=== PATIENT | male | born 1935 | race Caucasian/White ===

== ENCOUNTER 2016-12-04 00:35 | Inpatient (IN) | payer MEDICARE, OTHER ==
[~2016-12-04] VITALS: Ht 172.7 cm; Wt 67.4 kg
--- NOTE | 2016-12-04 01:00 | NUR ---
WOUND 4CM X 3CM PARTIAL THICKNESS WOUND NOTED TO RIGHT DORSAL FOOT , MODERATE DRAINAGE
--- NOTE | 2016-12-04 01:28 | DIREP ---
PROCEDURE:CHEST 1 VIEW COMPARISON:None. INDICATIONS:chest pain FINDINGS: LUNGS/PLEURA:There is pulmonary hyperinflation consistent with underlying COPD. No focal consolidation. No effusions. VASCULATURE:Normal. Unremarkable pulmonary vasculature. CARDIAC:Mild cardiomegaly. MEDIASTINUM:Atherosclerotic aorta with no visible aneurysm. BONES:Mild scoliosis with mild degenerative disc disease and spondylosis. OTHER:Negative. CONCLUSION:No acute cardiopulmonary disease. Dictated by: Ian Belcher M.D. on 12/04/2016 at 01:27 AM
[2016-12-04] MEDS ORDERED: NS 1000ML 1,000 ML IV ONE (01:30)
[2016-12-04] MEDS ORDERED: NS 1000ML 1,000 ML ONE (01:34)
[2016-12-04 01:41] LABS: BASOPHIL # 0.1 10^3/uL (0.0-0.1); BASOPHIL % 0.7 % (0.0-0.2); EOSINOPHIL # 0.8 10^3/uL (0.0-0.2); EOSINOPHIL % 7.4 % (0.0-5.0); HEMOGLOBIN 11.8 g/dL (13.9-16.3); LYMPHOCYTES # 0.8 10^3/uL (1.0-4.8); LYMPHOCYTES % 7.6 % (24.0-44.0); MEAN CELL HGB 28.1 pg (26-34); MEAN CELL HGB CONCENTRATION 32.6 g/dL (33-37); MEAN CORP VOLUME 86.2 fL (78-100); MONOCYTES # 0.6 10^3/uL (0.3-0.8); MONOCYTES % 6.3 % (5.0-12.0); NEUTROPHIL # 7.9 10^3/uL (1.8-7.7); NEUTROPHILS % 77.7 % (41.0-85.0); PLATELET COUNT 189 10^3/uL (150-400); RED CELL DISTRIBUTION WIDTH 14.6 % (11.5-14.5); WHITE BLOOD CELL 10.2 10^3/uL (4.5-11.0)
--- NOTE | 2016-12-04 02:30 | NUR ---
CT PATIENT TO CT VIA WHEELCHAIR
[2016-12-04 02:31] LABS: BAND NEUTROPHILS 0 % (2-6); EOSINOPHIL 8 % (1-4); LYMPHOCYTE 12 % (25-36); MONOCYTE 4 % (3-9); SEGMENTED NEUTROPHILS 76 % (31-76)
[2016-12-04 02:33] LABS: CALCIUM 8.6 mg/dL (8.4-10.5); CARBON DIOXIDE 24.9 mmol/L (20.0-32)
--- NOTE | 2016-12-04 02:41 | DIREP ---
PROCEDURE:XRAY FOOT MIN 3 VWS-LT COMPARISON:None. INDICATIONS:diabetic foot, open sores FINDINGS: BONES:Normal. JOINTS:Normal. SOFT TISSUES:Soft tissue swelling. Vascular calcification. OTHER:No additional findings. CONCLUSION:No fracture, subluxation, or plain film evidence of osteomyelitis. Dictated by: Ian Belcher M.D. on 12/04/2016 at 02:40 AM
--- NOTE | 2016-12-04 02:46 | DIREP ---
PROCEDURE:CT HEAD OR BRAIN W/O CONTRAST COMPARISON:None at. INDICATIONS:confusion TECHNIQUE:CT images were created without intravenous contrast. FINDINGS: VENTRICLES:There is mild prominence of the ventricles and cortical sulci consistent with age related involutional changes. CEREBRUM:Small foci of diminished attenuation in the supratentorial white matter consistent with mild leukoaraiosis. CEREBELLUM:Negative. BRAINSTEM:Negative. BASAL CISTERNS:Negative. HEMORRHAGE:No MASS LESION:No ACUTE INFARCT:No SKULL:Normal. SINUSES:Normal. OTHER:Vascular calcification. CONCLUSION:Mild chronic changes. Otherwise, negative head CT. Dictated by: Ian Belcher M.D. on 12/04/2016 at 02:44 AM
--- NOTE | 2016-12-04 02:56 | ER.PDOC ---
General Chief Complaint: Altered Mental Status Stated Complaint: CONFUSION TRAVEL OUT OF US: No Time seen by MD: 12:50 Source: patient, police History of Present Illness Initial Comments Confused patient brought in by police. He does know the date and after some thought, knows the place. He appears homeless Associated Symptoms: rash, weakness Allergies: Coded Allergies: No Known Allergies (Unverified , 12/04/16) Past Medical History Medical History: diabetes, hypertension Surgical History: hip Social History Smoking: non-smoker Alcohol Use: rarely Drug Use: none Physical Exam General Appearance: Mild Distress EENT: eyes nml inspection Neck: Non-Tender Respiratory: chest non-tender CVS: reg rate & rhythm Gastrointestinal: Normal Bowel Sounds Extremities: Normal Range of Motion Comments 4 cm x 3cm partial thickness lesion of r dorsal foot. Moderate drainage Results/Orders Results/Orders Laboratory Tests Test 12/04/16 01:25 12/04/16 03:47 White Blood Count 10.2 10^3/uL (4.5-11.0) Red Blood Count 4.20 10^6/uL (4.50-5.90) Hemoglobin 11.8 g/dL (13.9-16.3) Hematocrit 36.2 % (37.0-53.0) Mean Corpuscular Volume 86.2 fL (78-100) Mean Corpuscular Hemoglobin 28.1 pg (26-34) Mean Corpuscular Hemoglobin Concent 32.6 g/dL (33-37) Red Cell Distribution Width 14.6 % (11.5-14.5) Platelet Count 189 10^3/uL (150-400) Mean Platelet Volume 11.0 fL (7.8-11.0) Neutrophils (%) (Auto) 77.7 % (41.0-85.0) Lymphocytes (%) (Auto) 7.6 % (24.0-44.0) Monocytes (%) (Auto) 6.3 % (5.0-12.0) Neutrophils # (Auto) 7.9 10^3/uL (1.8-7.7) Lymphocytes # (Auto) 0.8 10^3/uL (1.0-4.8) Monocytes # (Auto) 0.6 10^3/uL (0.3-0.8) Absolute Immature Granulocyte (auto 0.03 10^3 u/L (0-2) Differential Total Cells Counted 100 #CELLS Eosinophils % 7.4 % (0.0-5.0) Basophils % 0.7 % (0.0-0.2) Segmented Neutrophils 76 % (31-76) Band Neutrophils 0 % (2-6) Lymphocytes 12 % (25-36) Monocytes 4 % (3-9) Absolute Eosinophils (Manual) 8 % (1-4) Basophils # 0.1 10^3/uL (0.0-0.1) Atypical Lymphocytes 0 % Platelet Estimate Adequate Platelet Morphology Normal Blood Morphology Comment Normal morphology Eosinophil Count 0.8 10^3/uL (0.0-0.2) Prothrombin Time 11.2 SEC (9.8-11.9) Prothromb Time International Ratio 1.1 Activated Partial Thromboplast Time 23.9 SEC (24.67-30.72) Sodium Level 139 mmol/L (132-145) Potassium Level 4.9 mmol/L (3.6-5.2) Chloride Level 104.0 mmol/L (96-109) Carbon Dioxide Level 24.9 mmol/L (20.0-32) Anion Gap 15.0 Blood Urea Nitrogen 36 mg/dL (7-18) Creatinine 1.79 mg/dL (0.59-1.40) Estimated GFR () 44.4 (>/=60) BUN/Creatinine Ratio 20.0 Glucose Level 318 mg/dL (70-110) Hemoglobin A1c 12.8 % (4.2-6.2) Calcium Level 8.6 mg/dL (8.4-10.5) Total Bilirubin 0.3 mg/dL (0.2-1.0) Aspartate Amino Transf (AST/SGOT) 24 U/L (0-35) Alanine Aminotransferase (ALT/SGPT) 18 U/L (12-78) Alkaline Phosphatase 144 U/L (50-136) Total Creatine Kinase 164 U/L (39-308) Troponin I 0.03 ng/mL (0.00-0.05) C-Reactive Protein 1.72 mg/dL (0.00-5.00) Pro-B-Type Natriuretic Peptide 2931 pg/mL (0-450) Total Protein 6.9 g/dL (6.4-8.2) Albumin 2.8 g/dL (3.4-5.0) Globulin 4.1 Thyroid Stimulating Hormone (TSH) 2.229 mIU/mL (0.358-3.740) Serum Alcohol < 3 mg/dL (3-50) Percent Immature Gran (Cell Imm) 0.30 % (0.00-0.50) Urine Collection Type Cath Urine Color Yellow (YELLOW) Urine Appearance Hazy (CLEAR) Urine Bilirubin Negative MG/DL (NEGATIVE) Urine Ketones 5 mg/dl (NEGATIVE) Urine Specific [place] 1.020 (1.005-1.035) Urine pH 5 (5.0-6.0) Urine Protein 100 mg/dl (NEGATIVE) Urine Urobilinogen Normal (NEGATIVE) Urine Nitrate Negative (NEGATAIVE) Urine Leukocyte Esterase Negative (NEGATIVE) Urine Blood Negative (NEGATIVE) Urine RBC None seen RBC/HPF (NONE Urine WBC 5-10 WBC/HPF (0-2) Urine Squamous Epithelial Cells Few #/HPF (FEW) Urine Bacteria Few (NONE SEEN) Urine Other 5-10 transitional Urine Glucose 500 (NEGATIVE) Opiates Screen Negative (NEGATIVE) Barbiturate Screen Negative (NEGATIVE) Urine Tricyclic Antidepressants Negative (NEGATIVE) Phencyclidine (PCP) Screen Negative (NEGATIVE) Amphetamines Screen Negative (NEGATIVE) Benzodiazepines Screen Negative (NEGATIVE) Cocaine Screen Negative (NEGATIVE) Ur Tetrahydrocannabinol (THC) Scrn Negative (NEGATIVE) Ketones Small (NEGATIVE) Administered Medications Medications (Trade) Dose Ordered Sig/Kiersten Route PRN Reason Start Time Stop Time Status Last Admin Dose Admin Sodium Chloride 1,000 ml @ 999 mls/hr Q1H1M ONCE IV 12/04/16 01:30 12/04/16 02:31 DC 12/04/16 01:39 Piperacillin Sod/ Tazobactam Sod 3.375 gm/Sodium Chloride 100 ml @ 100 mls/hr Q6H IV 12/04/16 02:00 12/07/16 01:59 12/04/16 03:39 EKG/XRAY/CT/US EKG Comments: Intraventricular block, 75 bpm Departure Time of Disposition: 04:21 Disposition: 01 HOME, SELF-CARE Impression: Primary Impression: Diabetic foot Condition: Improved Referrals: PCP,UNKNOWN (PCP) PRIMARY CARE PROVIDER Comments Admit for diabetic cellulitis of r foot BALDEMAR ESPINOZA MD Dec 04, 2016 02:56
--- NOTE | 2016-12-04 03:01 | NUR ---
BLOOD CULTURES BLOOD CULTURES DRAWN X 2
[2016-12-04] MEDS ORDERED: NS 100ML 100 ML IV ONE ×2 (03:25→08:09)
[2016-12-04] MEDS ORDERED: ZOSYN 3.375 GRAM VIAL IV ONE ×2 (03:25→08:09)
[2016-12-04] MEDS: ZOSYN 3.375 GRAM VIAL 3.375 GM in NS 100ML 100 ML IV SCH ×2 (03:39→08:12)
[2016-12-04 03:45] LABS: BILIRUBIN,URINE NEGATIVE (NEGATIVE); UROBILINOGEN,URINE NORMAL (NEGATIVE)
[2016-12-04 04:01] LABS: UR BENZODIAZEPINE QUAL NEGATIVE (NEGATIVE); UR COCAINE QUAL NEGATIVE (NEGATIVE)
[2016-12-04 04:07] LABS: UA COLOR YELLOW (YELLOW)
[2016-12-04 04:08] LABS: APPEARANCE,URINE HAZY (CLEAR)
--- NOTE | 2016-12-04 04:20 | NUR ---
DR JUSTINA IBRAHIM WITH DR HORN , APTIENT TO BE ADMITTED TO MED SURG
[2016-12-04 04:50] LABS: CALCIUM 8.3 mg/dL (8.4-10.5); CARBON DIOXIDE 25.6 mmol/L (20.0-32)
[2016-12-04] MEDS ORDERED: ALBU18HF IH (05:01)
[2016-12-04] MEDS ORDERED: LISI-414 PO (05:01)
[2016-12-04] MEDS ORDERED: ATOR80TA PO (05:01)
[2016-12-04] MEDS ORDERED: METF10002 PO (05:01)
[2016-12-04] MEDS ORDERED: GLIP5TAB10 PO (05:01)
[2016-12-04] MEDS ORDERED: [UNRECOGNIZED DRUG - CODE] PO (05:01)
[2016-12-04] MEDS ORDERED: [UNRECOGNIZED DRUG - CODE] PO (05:01)
[2016-12-04 06:02] VITALS: BP 136/63
--- NOTE | 2016-12-04 06:30 | NUR ---
REPORT RECEIVED REPORT ON PT. THIS NURSE ASSUMED CARE.
--- NOTE | 2016-12-04 06:42 | NUR ---
patient transfer to 328 per wheel chair ,
[2016-12-04] MEDS ORDERED: NOVOLOG SQ STA (12:04)
[2016-12-04 12:37] VITALS: BP 139/72
[2016-12-04] MEDS ORDERED: ZOSYN IV SCH (14:00)
[2016-12-04] MEDS ORDERED: NS IV SCH (14:00)
[2016-12-04] MEDS ORDERED: VENTOLIN IH PRN (14:30)
[2016-12-04] MEDS: VANCOMYCIN HCL 1 GM in NS 250ML 250 ML IV SCH (15:30)
--- NOTE | 2016-12-04 16:15 | NUR ---
WOUND CARE WOUND CARE NURSE IN TO SEE PT AT THIS TIME. STATED TO SCRUB LLE AND THEN APPLY LOTION TO BLE. AREAS TO BUTTOCK AND MIDDLE UPPER BACK TO PLACE OPITFOAM ON AREAS.
[2016-12-04 18:00] VITALS: BP 118/64
--- NOTE | 2016-12-04 18:36 | NUR ---
REPORT REPORT RECEIVED FROM MEENA MTZ ASSUMED CARE OF PT
[2016-12-04 19:43] VITALS: BP 125/65
[2016-12-04] MEDS: LIPITOR PO SCH (21:16)
[2016-12-04] MEDS: ZOSYN 4.5 GRAM VIAL 4.5 GM in NS 100ML 100 ML IV SCH (21:17)
[2016-12-04] MEDS: GLUCOTROL PO SCH (21:17)
[2016-12-04] MEDS ORDERED: NS 500ML 500 ML IV ONE (21:19)
[2016-12-05] VITALS: BP 109/44
--- NOTE | 2016-12-05 00:20 | HPH ---
ADMIT DATE: 12/04/2016 The patient is being admitted as an inpatient. PRIMARY CARE PHYSICIAN: None. ADMITTING DIAGNOSES: 1. Left foot cellulitis with ulcerated wound. 2. 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 3. Right eye blindness. 4. Hypertension with chronic kidney disease stage 3. CHIEF COMPLAINT: Left foot has a wound on it. HISTORY OF PRESENT ILLNESS: The patient is an 81-year-old gentleman who is on a trip in his van and noticed that there was an open wound to the top of his left foot for at least a week now that has not healed completely. He was actually stopped by the police and brought in to the ER where he was found to have this open wound to his left foot and elevated blood sugars and he was subsequently admitted to my service. He denies any fevers, no chills, no lethargy, no nausea, no vomiting, no chest pain, no abdominal pain currently. No hematemesis, no hemoptysis, no diarrhea no melena, no hematochezia, no syncope. He does walk around with a cane and he has been doing that. PAST MEDICAL HISTORY: Significant for type 2 diabetes mellitus, hypertension, right eye blindness. PAST SURGICAL HISTORY: Right hip replacement. 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 ALLERGIES: NO KNOWN DRUG ALLERGIES. SOCIAL HISTORY: He does not smoke. He has an occasional alcohol, no IV drugs reported. FAMILY HISTORY: Asked and noncontributory for this admission. MEDICATIONS: He is on include metformin, vitamin E, lisinopril, glipizide, Lipitor, vitamin C and albuterol. PHYSICAL EXAMINATION: VITAL SIGNS: On admission, temperature is 97.7, pulse rate 68, respirations 16, blood pressure 130/62, O2 sats 98%. My physical exam is as follows: GENERAL: He is in no acute distress to me, awake and alert. He is oriented to person and place. HEENT: Oropharynx is clear. No maxillary sinus tenderness. NECK: Supple, no JVD, no bruits. HEART: S1, S2 audible. He had S3 component noted. LUNGS: Clear bilaterally. ABDOMEN: Bowel sounds are present. Soft abdomen. No rebound, no guarding, no masses. EXTREMITIES: No pitting edema. The top of his left foot does have an ulcerated wound that is crusted. No significant exudate noted. There is redness surrounding the wound. I could not palpate a good dorsalis pedis pulse. LABORATORY DATA: Labs were drawn. White count was 10,200, hemoglobin 11.8, platelet count of 189. Coags were normal. Chemistry panel had a BUN 34, creatinine 1.79, glucose is 318. ProBNP was 2931, albumin of 2.8. UA showed few bacteria. Urine drug screen was negative. Alcohol level was less than 3. IMAGING STUDIES: He had x-rays of his left foot that did not show any fractures or osteomyelitis or cortical disruption. CT of the head did not show any acute findings. Chest x-ray did not show any acute findings as well. ASSESSMENT: We have this 81-year-old gentleman with left foot ulcerated wound with surrounding cellulitis with uncontrolled diabetes, hypertension. I will go ahead and continue his home medications. I will hold the metformin for now with his elevated creatinine and I will cover him with the NovoLog sliding scale for now. I will put him on vancomycin and Zosyn at renal dosing and get wound care nurse to treat the wound in the meantime. Yessenia Viveros MD DR: DONNA/tunde JOB# [id number] STEF
--- NOTE | 2016-12-05 02:26 | PRM.ACF1 ---
Admission Criteria Forms CELLULITIS Clinical Indications for Admission to Inpatient Care (Place 'X' for any and all applicable criteria): Admission is indicated for ANY ONE of the following(1)(2)(3)(4)(5): [ ]I. Limb-threatening infection [ X]II. High-risk comorbid condition as indicated by ANY ONE of the following: [X ]a) Uncontrolled diabetes (eg, HbA1c greater than 10% (0.1)) [ ]b) Cirrhosis [ ]c) Neutropenia [ ]d) Asplenia [ ]e) Immunosuppression [ ]f) Symptomatic heart failure [ ]III. Failure of outpatient therapy as indicated by ALL of the following: [ ]a) Progression or no improvement after adequate trial (minimum of 48 hours, with longer period for stable lower extremity infection) [ ]b) Adequate antibiotic regimen as indicated by use of ANY ONE of the following: [ ]i) First-generation cephalosporin (e.g., cephalexin) [ ]ii) Antistaphylococcal penicillin (e.g., dicloxacillin) [ ]iii) Penicillin-allergic patient regimen (clindamycin, extended-spectrum fluoroquinolone, or doxycycline) [ ]iv) Resistant organism (eg, methicillin-resistant Staphylococcus aureus) regimen (6) [ ]c) Outpatient intravenous therapy regimen is not appropriate due to ANY ONE of the following. (7)(8)(9)(10): [ ]i) It was tried and was not successful (eg, progression of infection). [ ]ii) It is not available or cannot be arranged in a clinically appropriate time frame (e.g., the next day). [ ]iii) Clinical presentation (eg, acuity of infection, rapidity of progression, confirmed or suspected bacteremia) is judged to require ALL of the following: [ ]1) Immediate initiation of intravenous therapy ( eg, cannot wait for next day) [ ]2) Intensity of patient monitoring and observation (eg, vital sign measurement, checks for infection progression) that cannot be provided at other than inpatient level of care [ ]IV. Mental status changes [ ]V. Bacteremia [ ]. Hemodynamic instability [ ]VII. Suspected necrotizing soft tissue infection (e.g., gas in tissue)(11)( 12) [ ]VIII. Orbital infection (13)(14) [ ]IX. Associated surgical procedure (e.g., abscess drainage, debridement) not amenable to outpatient, emergency department, or observation care [ ]X. Cutaneous gangrene [ ]XI. High fever (temperature greater than 39.5 degrees C (103.1 degrees F) (oral)) not responsive to outpatient, emergency department, or observation care therapy [ ]XIII. Inpatient admission required rather than observation care (Also use Cellulitis: Observation Care as appropriate) because of ANY ONE of the following : [ ]a) Periorbital or perineal infection that is severe or worsening [ ]b) Severe pain requiring acute inpatient management [ ]c) IV fluid to replace significant ongoing (e.g., for over 24 hours) losses (greater than 3L/m2 per day) [ ]d) Compartment syndrome monitoring (17) [ ]e) Strict or protective (eg, laminar flow) isolation [ ]f) Urgent debridement or skin grafting [ ]g) Bone or joint debridement [ ]h) Immediate inpatient surgery [ ]i) Other condition, treatment or monitoring requiring inpatient admission Extended stay beyond goal length of stay may be needed for (1)(18): [ ]a) Necrotizing soft tissue infection or fasciitis [ ]b) Gram-negative infection [ ]c) Methicillin-resistant Staphylococcal aureus (MRSA) infection [ ]d) Peripheral venous insufficiency with cellulitis [ ]e) Extensive edema [ ]f) Sepsis or continued Hemodynamic instability [ ]g) Continued high fever or mental status change [ ]h) Bacteremia [ ]i) Active serious comorbid conditions ( eg, heart failure, renal insufficiency) The original [employer] content created by [employer] has been revised. The portions of the content which have been revised are identified through the use of italic text or in bold, and [facility] has neither reviewed nor approved the modified material. All other unmodified content is copyright [facility] [employer] Please see references footnoted in the original [employer] edition 2016 Physician order is complete/pr: Yes Is [facility]/Jessika's added/comple: YES NILE WILDE [facility] Dec 05, 2016 02:26
[2016-12-05 04:00] VITALS: BP 92/41
[2016-12-05 05:30] LABS: BASOPHIL # 0.1 10^3/uL (0.0-0.1); BASOPHIL % 0.6 % (0.0-0.2); EOSINOPHIL % 12.9 % (0.0-5.0); HEMOGLOBIN 10.7 g/dL (13.9-16.3); LYMPHOCYTES # 0.7 10^3/uL (1.0-4.8); LYMPHOCYTES % 8.4 % (24.0-44.0); MEAN CELL HGB 27.9 pg (26-34); MEAN CELL HGB CONCENTRATION 32.5 g/dL (33-37); MEAN CORP VOLUME 85.7 fL (78-100); MEAN PLATELET VOLUME 11.6 fL (7.8-11.0); MONOCYTES # 0.5 10^3/uL (0.3-0.8); MONOCYTES % 6.3 % (5.0-12.0); NEUTROPHIL # 5.8 10^3/uL (1.8-7.7); NEUTROPHILS % 71.6 % (41.0-85.0); RED CELL DISTRIBUTION WIDTH 14.3 % (11.5-14.5); WHITE BLOOD CELL 8.1 10^3/uL (4.5-11.0)
[2016-12-05 05:52] LABS: CALCIUM 8.3 mg/dL (8.4-10.5); CARBON DIOXIDE 25.8 mmol/L (20.0-32)
[2016-12-05] MEDS: ZOSYN 4.5 GRAM VIAL 4.5 GM in NS 100ML 100 ML IV SCH ×3 (05:54→21:43)
--- NOTE | 2016-12-05 06:45 | NUR ---
REPORT RECEIVED REPORT ON PT. THIS NURSE ASSUMED CARE.
[2016-12-05 07:30] VITALS: BP 116/54
[2016-12-05] MEDS: VITAMIN C PO SCH (08:54)
[2016-12-05] MEDS: ZESTRIL PO SCH (08:58)
[2016-12-05] MEDS: VITAMIN E PO SCH (08:58)
[2016-12-05] MEDS: GLUCOTROL PO SCH ×2 (08:59→20:14)
--- NOTE | 2016-12-05 11:20 | DIREP ---
PROCEDURE:US ANKLE BRACHIAL INDEX COMPARISON:None. INDICATIONS:cellulitis, claudication, DM TECHNIQUE:A color duplex Doppler ultrasound examination of the bilateral lower extremities was performed. Color image and bidirectional spectral Doppler wave form analysis, and peak systolic flow measurements of the right posterior tibial and dorsalis pedis arteries were performed. Left ankle-brachial indices were not obtained because of an open wound at the left ankle. FINDINGS: RIGHT LOWER EXTREMITY: LOVE DP: 1.125; PT: 1.0 POSTERIOR TIBIAL:52.1 cm/sTriphasic DORSALIS PEDIS:76.1 cm/sTriphasic LEFT LOWER EXTREMITY: POSTERIOR TIBIAL:71.5 cm/sTriphasic DORSALIS PEDIS:103.9 cm/sTriphasic CONCLUSION: 1. Normal right ankle-brachial indices. 2. Left ankle-brachial indices were not obtained because of an open wound in the left ankle. 3. Normal peak systolic velocities in the arteries of both ankles. ABIs greater than 1.4 indicate noncompressible vessels, likely to have significant peripheral vascular disease (PVD). ABIs of 0.91 to 1.3 indicate no significant obstructive disease. ABIs of 0.41 to 0.90 indicate grade I claudication. ABIs less than 0.4 indicate limb-threatening ischemia of grade I or grade II. Dictated by: Sherman Levine M.D. on 12/05/2016 at 11:14 AM
--- NOTE | 2016-12-05 11:21 | PRM.PN ---
Subjective Subjective Subjective Pt has no c/o; eating well and foot wound reported better Patient History: Patient reports no known family medical history. VTE VTE Risk Total Score: 3 VTE Risk Score VTE Risk: Score 0-1 = Low Risk (Aggressive mobilization; early ambulation; no VTE prophylaxis required) Score 2: Moderate Risk (Intermittent/Pneumatic Compression Device OR Lovenox/Heparin/Coumadin) Score 3-4: High Risk (Intermittent/Pneumatic Compression Device AND Lovenox/Heparin/Coumadin) Score > or =5: Highest Risk (Intermittent/Pneumatic Compression Device AND Lovenox/Heparin/Coumadin) Antico:Hep/LMWH/Coum/Xarelto: No Mechanical device ordered: No Review of Systems Constitutional: No: Fever, Chills, Weakness, Malaise Eyes: No: Vision change, Conjunctivae inflammation, Eyelid inflammation ENT: No: Ear pain, Ear discharge, Nose pain, Nose discharge, Nose congestion Respiratory: No: Cough, Dry, Shortness of breath, SOB with excertion, Wheezing Cardiovascular: No: Chest Pain, Palpitations, Orthopnea, Paroxysmal Noc. Dyspnea Gastrointestinal: No: Nausea, Vomiting, Abdominal Pain, Diarrhea Genitourinary: No Dysuria, No Frequency, No Incontinence, No Hematuria Musculoskeletal: No: neck pain, shoulder pain, arm pain, back pain Skin: No: Rash, Jaundice, Bruising Neurological: No: Weakness, Change in speech, Confusion, Seizures Allergies: Coded Allergies: No Known Allergies (Unverified , 12/04/16) Scheduled Ascorbic Acid (Vitamin C), 1,000 MG PO DAILY, (Reported) Atorvastatin 80MG (Lipitor 80MG), 1 TAB PO DAILY, (Reported) Glipizide (Glipizide), 1 TAB PO BID, (Reported) Lisinopril (Lisinopril), 1 TAB PO DAILY, (Reported) Metformin Hcl (Metformin Hcl), 1 TAB PO BID, (Reported) Vitamin E (Vitamin E), 400 UNIT PO DAILY, (Reported) Scheduled PRN Albuterol Sulfate (Ventolin Hfa), 1 PUFF IH Q4 PRN for SHORTNESS OF BREATH, ( Reported) Objective Vitals and I/O Vital Sign - Last 24 Hours 12/04/16 12/04/16 12/04/16 12/04/16 12:37 16:39 18:00 19:39 Temp 97.4 97.7 Pulse 60 61 Resp 18 16 18 B/P (MAP) 139/72 (94) 118/64 (82) Pulse Ox 98 97 98 O2 Delivery Room Air 12/04/16 12/04/16 12/05/16 12/05/16 19:43 20:16 00:00 00:29 Temp 98.3 99.1 Pulse 66 65 63 Resp 18 12 16 B/P (MAP) 125/65 (85) 109/44 (65) Pulse Ox 95 95 95 O2 Delivery Room Air Room Air Room Air 12/05/16 12/05/16 12/05/16 12/05/16 04:00 07:30 08:00 08:58 Temp 98.7 98.0 Pulse 64 64 Resp 16 18 B/P (MAP) 92/41 (58) 116/54 (74) 116/54 Pulse Ox 95 O2 Delivery Room Air Room Air Intake and Output 12/04/16 12/04/16 12/05/16 15:00 23:00 07:00 Intake Total 220 ml 440 ml Output Total 425 ml 250 ml Balance -205 ml 190 ml General: Alert, Cooperative, No acute distress HEENT: Atraumatic, Mucous membr. moist/pink Neck: Supple, No JVD, No LAD Lungs: Clear to auscultation, Normal air movement Heart: Normal S2 Abdomen: Normal bowel sounds, Soft Extremities: No clubbing, No cyanosis Neuro: Normal speech Psych/Mental Status: Mental status NL, Mood NL Medication Reconciliation Scheduled Ascorbic Acid (Vitamin C), 1,000 MG PO DAILY, (Reported) Atorvastatin 80MG (Lipitor 80MG), 1 TAB PO DAILY, (Reported) Glipizide (Glipizide), 1 TAB PO BID, (Reported) Lisinopril (Lisinopril), 1 TAB PO DAILY, (Reported) Metformin Hcl (Metformin Hcl), 1 TAB PO BID, (Reported) Vitamin E (Vitamin E), 400 UNIT PO DAILY, (Reported) Scheduled PRN Albuterol Sulfate (Ventolin Hfa), 1 PUFF IH Q4 PRN for SHORTNESS OF BREATH, ( Reported) Assessment/Plan Assessment/Plan Assessment/Plan 81 yo male with L foot cellulitis/open wound, Type 2 DM, HTN - cont IV vanco and zosyn - local wound care; clinically improving - follow sugars Problems: Patient History: Patient reports no known family medical history. MONTANA HORN MD Dec 05, 2016 11:21
[2016-12-05] MEDS ORDERED: NOVOLOG SQ STA (12:09)
--- NOTE | 2016-12-05 14:00 | NUR ---
PT PLACED SITTING UP IN CHAIR AFTER SHOWER AT THIS TIME
[2016-12-05 15:21] VITALS: BP 112/62
[2016-12-05] MEDS: VANCOMYCIN HCL 1 GM in NS 250ML 250 ML IV SCH (15:30)
[2016-12-05 19:44] VITALS: BP 105/62
[2016-12-05] MEDS: LIPITOR PO SCH (20:15)
[2016-12-06 00:20] VITALS: BP 110/60
[2016-12-06 05:40] VITALS: BP 110/48
[2016-12-06] MEDS: ZOSYN 4.5 GRAM VIAL 4.5 GM in NS 100ML 100 ML IV SCH (05:42)
--- NOTE | 2016-12-06 07:00 | NUR ---
REPORT REPORT RECEIVED FROM PREVIOUS SHIFT AND ASSUMED CARE OF PT
--- NOTE | 2016-12-06 07:39 | NUR ---
ASSESSMENT ASSESSMENT COMPLETE AT THIS TIME. PT SITTING UP IN BED. DENIES ANY PAIN OR DISCOMFORT AT THIS TIME. LUNGS CTA. RESPIRATIONS EVEN AND NONLABORED. ABD SOFT AND NONDISTENDED. BOWEL SOUNDS ACTIVE X4. EDEMA NOTED TO LLE. RADIAL AND PEDAL PULSES PRESENT AND WNL. ALL NEEDS MET. CALL LIGHT WITHIN REACH.
[2016-12-06] MEDS: VITAMIN C PO SCH (09:02)
[2016-12-06] MEDS: VITAMIN E PO SCH (09:03)
[2016-12-06] MEDS: GLUCOTROL PO SCH (09:03)
[2016-12-06] MEDS: ZESTRIL PO SCH (09:04)
[2016-12-06 09:57] VITALS: BP 122/59
--- NOTE | 2016-12-06 11:58 | NUR ---
DISCHARGE PLANNING: SS VISITED WITH PT REGARDING DISCHARGE PLANNING NEED. PT STATED HE LIVES AND TRAVELS BACK AND FORTH FROM [place] TO [place], [place]. PT STATED HE WAS JUST TRAVELING THROUGH HERE WHEN HE CAME THROUGH THE ER. PT IS A [facility] AND USES A CANE TO ASSIST WITH AMBULATION. PT SAFETY HANDOUT ADDRESSED, NO QUESTIONS ASKED, UNDERSTANDING VERBALIZED. NO FURTHER NEEDS NOTED OR IDENTIFIED AT THIS TIME. CONTACT INFORMATION PROVIDED. SS TO CONTINUE TO FOLLOW AND MONITOR DISCHARGE PLANNING NEEDS.
[2016-12-06 12:25] VITALS: BP 142/63
[2016-12-06] MEDS ORDERED: SULF1TAB24 PO (12:58)
[2016-12-06] MEDS ORDERED: GLIP5TAB10 PO (12:58)
--- NOTE | 2016-12-06 13:31 | DSH ---
DATE OF DISCHARGE: 12/06/2016 ADMITTING DIAGNOSES: 1. Left foot ulcer/wound with cellulitis. 2. Uncontrolled type 2 diabetes mellitus with hypertension, diabetic nephropathy, chronic kidney disease stage 3. DISCHARGE DIAGNOSES: 1. Left foot wound with improving cellulitis. 2. Underlying type 2 diabetes mellitus, hypertension, diabetic nephropathy, and chronic kidney disease stage 3. HOSPITAL COURSE: The patient is an 81-year-old gentleman who has been traveling in his van and was going to [place] from [place]. He was found out on the side of the road, a bit confused and police brought him in to the ER where it was noted that he had an open wound to his left foot that was infected and his sugars were high. He came in with a creatinine of around 1.7 as well. So, I went ahead and started him on vancomycin daily renal dosing along with Zosyn and we had local wound care done to his foot wound. I started to give him some NovoLog and continue his glipizide, but held his metformin when he came in. His wound definitely is improved, the redness is down and he feels okay. He has been eating well. I have held his metformin, but increased his glipizide to 10 mg twice a day along with the NovoLog. At this point, he really wants to be discharged and he said that he is going to drive to [place] to seek medical attention there because that is where he was going to begin with. So, at this time, I will go ahead and discharge him. I have asked him to put an antibiotic ointment on his left foot wound twice a day and keep it loosely covered and keep his leg elevated as much as possible. I am going to put him on Bactrim DS twice a day for 7 more days. I have asked him to hold his metformin and increase his glipizide to 10 mg twice a day and to stay on a low carb diet for now and again I have asked him to have medical followup within this week. Yessenia Viveros MD DR: DONNA/tunde JOB# [id number]
[2016-12-06] MEDS: VANCOMYCIN HCL 1 GM in NS 250ML 250 ML IV SCH (14:15)
--- NOTE | 2016-12-06 16:04 | NUR ---
OFF UNIT PT DISCHARGED AT THIS TIME. PT STATES UNDERSTANDING OF NEW MEDICATIONS. IV D/C ASCETIC TECHNIQUE. CATH TIP INTACT. NO S/S OF INFECTION. [facility] OFFICE NOTIFIED OF PTS DISMISSAL. [facility] OFFICE TO SEND DEPUTY TO [facility] FOR TRANSPORT.
[2016-12-06 16:06] VITALS: BP 142/63
== END 2016-12-06 16:08 | disposition home or self-care (01) | DRG 638 ==
LOC: ER 00:35 → MS 04:27
PROVIDERS: ADMIT Pediatrics; ATTEND Pediatrics
DX: E11.628 Type 2 diabetes mellitus with other skin complications (principal); L03.116 Cellulitis of left lower limb; E44.1 Mild protein-calorie malnutrition; E11.22 Type 2 diabetes mellitus with diabetic chronic kidney disease; E11.40 Type 2 diabetes mellitus with diabetic neuropathy, unspecified; E11.65 Type 2 diabetes mellitus with hyperglycemia; H54.41 Blindness, right eye, normal vision left eye; I12.9 Hypertensive chronic kidney disease with stage 1 through stage 4 chronic kidney disease, or unspecified chronic kidney disease; N18.3 Chronic kidney disease, stage 3 (moderate); Z96.641 Presence of right artificial hip joint; E11.621 Type 2 diabetes mellitus with foot ulcer; L97.529 Non-pressure chronic ulcer of other part of left foot with unspecified severity; Z89.421 Acquired absence of other right toe(s); Z59.0 Homelessness; Z79.84 Long term (current) use of oral hypoglycemic drugs; Z79.899 Other long term (current) drug therapy; Z68.22 Body mass index [BMI] 22.0-22.9, adult
CPT/HCPCS: 36415; 70450; 71010; 80048; 80053; 80307; 81000; 82550; 82948; 83036; 83880; 84443; 84484; 85007; 85025; 85610; 85730; 86140; 87040; 87070; 87077; 87086; 87186; 93005; 93922; 96360; 99285; G0481; J2543; J7030; J7040; J7050; 73630-LT; A9270